=== PATIENT | male | born 1950 | race Two or more races ===

== ENCOUNTER 2017-01-26 15:16 | Observation (INO) | payer OTHER ==
[~2017-01-26] VITALS: Ht 177.8 cm; Wt 108.9 kg
[2017-01-26] MEDS ORDERED: MORPHINE SULF INJ 2 MG/ML SYRINGE 1ML IV ONE (16:00)
[2017-01-26] MEDS ORDERED: ONDANSETRON HCL 4 MG/2 ML VIAL IV ONE (16:00)
[2017-01-26] MEDS ORDERED: LACTULOSE 20Gm/30ML SOLN PO ONE (16:00)
[2017-01-26 16:34] LABS: Albumin 2.1 g/dL (3.4-5.0); BUN/Creatinine Ratio 19.5; Bilirubin, Total 2.4 mg/dL (0.2-1.0); Magnesium 2.1 mg/dL (1.6-2.6); Potassium 4.7 mmol/L (3.5-5.1); Total Protein 5.6 g/dL (6.4-8.2)
[2017-01-26 16:57] LABS: INR 1.71 (0.9-1.15); Partial Thromboplastin Time 51.3 sec (22.64-33.71); Prothrombin Time 18.7 sec (9.37-12.3)
[2017-01-26 16:59] LABS: Hemoglobin 7.4 g/dL (13.5-17.5)
[2017-01-26 17:01] LABS: Hematocrit 23.1 % (41.0-53.0); Mean Corpuscular Hgb Conc. 32.1 g/dL (32.0-36.0); Mean Corpuscular Volume 90.2 fL (80.0-100.0); Mean Platelet Volume 10.1 fL (6.9-10.8); Platelet Count (auto) 30 10^3/uL (140-450); White Blood Cell 4.1 10^3/uL (4.4-10.8)
[2017-01-26 17:11] LABS: Myelocytes % 0; Promyelocytes % 0; Reactive Lymphocytes 0
[2017-01-26 17:11] LABS: REFLEX LACTIC ACID YES OR NO YES
[2017-01-26 18:55] LABS: Metamyelocytes % 2; Platelet Estimate Decreased
[2017-01-26 18:56] LABS: Burr Cells FEW; Ovalocytes FEW
[2017-01-26] MEDS ORDERED: DEXTROSE (50%) 50ML SYRG IV ONE (20:00)
[2017-01-26] MEDS ORDERED: SODIUM CHLORIDE 0.9% 1,000 ML IV ONE (20:00)
[2017-01-26] MEDS ORDERED: cefTRIAXone 1GM/50ML D5W 50 ML IV ONE (20:00)
[2017-01-26 23:14] VITALS: BP 105/39
== END 2017-01-26 23:40 | disposition short-term general hospital (02) | DRG 872 ==
LOC: EDBD 15:16 → ER 15:18 → OVERFLOW 16:01
PROVIDERS: ADMIT Family Medicine; ATTEND Family Medicine
DX: A41.9 Sepsis, unspecified organism (principal); R18.8 Other ascites; K74.60 Unspecified cirrhosis of liver; I10 Essential (primary) hypertension; K43.9 Ventral hernia without obstruction or gangrene; I86.4 Gastric varices; M79.89 Other specified soft tissue disorders; Z90.49 Acquired absence of other specified parts of digestive tract
CPT/HCPCS: 36415; 74176; 80053; 82140; 82150; 82962; 83605; 83690; 83735; 85007; 85027; 85379; 85610; 85730; 87040; 87077; 87186; 93970; 96365; 96375; 99291; G0378; J0696; J2270; J2405; J7030; J7042